=== PATIENT | male | born 1945 | race Caucasian/White ===

== ENCOUNTER 2016-12-29 19:16 | Emergency (ER) | payer MEDICARE, OTHER ==
--- NOTE | 2016-12-29 19:40 | EDM.PDOC ---
ED HPI GENERAL MEDICAL PROBLEM - General Chief Complaint: Back Pain or Injury Stated Complaint: [facility] Time Seen by Provider: 12/29/16 19:27 Source of Information: Reports: Patient, Family (), RN Notes Reviewed History Limitations: Reports: No Limitations - History of Present Illness INITIAL COMMENTS - FREE TEXT/NARRATIVE: The patient states that he and his are on a bus tour, visiting from [place]. They were at [place], and the patient went to sit on a picnic bench, but missed, falling onto the concrete floor, onto his back. He states that he did not strike his head, nor injure his extremities. He presents with right mid back pain. He describes it as dull, but that it is worse with movement. He denies prior back issues. Right mid-back Pain Score (Numeric/FACES): 7 - Related Data Allergies Allergy/AdvReac Type Severity Reaction Status Date / Time erythromycin base Allergy Hives Verified 12/29/16 19:26 Home Meds: Home Meds Albuterol Sulfate [Proair Hfa] 8.5 gm IH ASDIRECTED PRN 12/29/16 [History] Aspirin 162 mg PO DAILY 12/29/16 [History] Pantoprazole [ProTONIX] 40 mg PO ACBREAKFAST 12/29/16 [History] Propranolol [Inderal LA] 80 mg PO DAILY 12/29/16 [History] Simvastatin [Zocor] 40 mg PO DAILY 12/29/16 [History] Umeclidinium Brm/Vilanterol Tr [Anoro Ellipta 62.5-25 Mcg INH] 1 puff INH DAILY 12/29/16 [History] Past Medical History Cardiovascular History: Reports: Aneurysm (AAA), High Cholesterol, Hypertension Respiratory History: Reports: COPD, Sleep Apnea (CPAP 4.5) Gastrointestinal History: Reports: Colon Polyp, GERD (with Grigsby esophagus) Genitourinary History: Reports: BPH Musculoskeletal History: Reports: Gout (suspected) Endocrine/Metabolic History: Reports: Obesity/BMI 30+ - Past Surgical History HEENT Surgical History: Reports: Tonsillectomy Cardiovascular Surgical History: Reports: AAA repair GI Surgical History: Reports: Hernia, Inguinal (bilateral) Social & Family History - Tobacco Use Smoking Status *Q: Former Smoker Years of Tobacco use: 25 Packs/Tins Daily: 1.5 Month Tobacco Last Used: 1987 Second Hand Smoke Exposure: No - Alcohol Use Alcohol Use History: No - Recreational Drug Use Recreational Drug Use: No - Living Situation & Occupation Living situation: Reports: , with Spouse Occupation: Retired ED ROS GENERAL - Review of Systems Review Of Systems: See Below Constitutional: Reports: No Symptoms HEENT: Reports: No Symptoms Respiratory: Reports: No Symptoms Cardiovascular: Reports: No Symptoms Endocrine: Reports: No Symptoms GI/Abdominal: Reports: No Symptoms : Reports: No Symptoms Musculoskeletal: Reports: No Symptoms Skin: Reports: No Symptoms Neurological: Reports: No Symptoms Psychiatric: Reports: No Symptoms Hematologic/Lymphatic: Reports: No Symptoms Immunologic: Reports: No Symptoms ED EXAM, SKIN/RASH Exam: See Below Exam Limited By: No Limitations General Appearance: Alert, WD/WN, No Apparent Distress Eye Exam: Bilateral Eye: Normal Inspection Ears: Normal External Exam, Hearing Grossly Normal Nose: Normal Inspection, No Blood Throat/Mouth: Normal Inspection, Normal Lips, Normal Voice, No Airway Compromise Head: Atraumatic, Normocephalic Neck: Normal Inspection, Full Range of Motion Respiratory/Chest: No Respiratory Distress, Lungs Clear, Normal Breath Sounds, No Accessory Muscle Use Cardiovascular: Normal Peripheral Pulses, Regular Rate, Rhythm, No Gallop, No JVD, No Murmur, No Rub Peripheral Pulses: 4+: Radial (L), Radial (R) GI/Abdominal: Normal Bowel Sounds, Soft, Non-Tender, No Organomegaly, No Distention, No Abnormal Bruit, No Mass, Other (Obese) (Male) Exam: Deferred Rectal (Males) Exam: Deferred Back Exam: Normal Inspection, Other (No visible abnormality to the patient's back, such as swelling, erythema, ecchymosis, or abrasion, however, the patient has considerable tenderness to palpation over the right mid ribs. No tenderness over the thoracic spine.). No: Vertebral Tenderness Extremities: Normal Inspection, Normal Range of Motion, Normal Capillary Refill , Other (Hyperpigmentation of both legs, consistent with chronic venous stasis changes. Approximately 1+ pitting edema presently.) Neurological: Alert, Oriented, Normal Cognition, No Motor/Sensory Deficits Psychiatric: Normal Affect Skin: Warm, Dry, Intact, Normal Color, No Rash Lymphatic: No Adenopathy Course - Vital Signs Last Recorded V/S: Last Vital Signs Temp 36.7 C 12/29/16 19:21 Pulse 70 07/11/17 19:21 Resp 19 12/29/16 19:21 BP 161/63 H 12/29/16 19:21 Pulse Ox 91 L 12/29/16 19:21 - Orders/Labs/Meds Orders: Active Orders 24 hr Category Date Time Status Chest 2V [CR] Stat Exams 12/29/16 20:12 Taken Meds: Medications Discontinued Medications Generic Name Dose Route Start Last Admin Trade Name Silvio PRN Reason Stop Dose Admin Hydrocodone Bitart/Acetaminophen 2 tab 12/29/16 20:13 12/29/16 20:20 [place] 325-5 Mg PO 12/29/16 20:14 2 tab ONETIME ONE Administration - Re-Assessments/Exams Free Text/Narrative Re-Assessment/Exam: 12/29/16 21:15 Two-view chest radiograph reviewed. Views are limited due to body habitus. Cardiac silhouette is likely at the upper limits of normal. No pulmonary vascular congestion. No pleural effusions. No focal infiltrate. No pneumothorax. Posterior fractures of ribs 5, 6, and 7 noted. Formal read per the Radiologist pending. 12/29/16 21:22 As the patient and his are on a bus tour, visiting from [place], he will not have access to a pharmacy tomorrow. The patient will be discharged with an [facility] prescription for [place]. While I see no pneumothorax at this time, I instructed the patient that if he develops any dyspnea, that he should go to the nearest ER for reevaluation. Departure - Departure Time of Disposition: 21:23 Disposition: Home, Self-Care 01 Condition: Fair Clinical Impression: Multiple fractures of ribs, right side, initial encounter for closed fracture - Discharge Information Instructions: Rib Fracture, [id number] Referrals: PCP,Not In Area [Primary Care Provider] - Forms: ED Department Discharge Additional Instructions: You were seen in the emergency room after falling off a picnic bench onto your back. Workup in the ER included a chest x-ray. The x-ray shows fractures of your right 5th, 6th, and 7th ribs. Take [id number] ibuprofen 2-3 tablets (400-600 mg) every 8 hours, with food, as needed for pain. You have been started on the narcotic pain reliever [place]. Take 1-2 tablets up to every 6 hours, as needed for pain not relieved by ibuprofen. If you take [place], do not drive or operate heavy machinery for 12 hours afterwards. [place] will likely cause constipation, so consider taking a stool softener. Despite your pain, it is important that you stay active. While we do not see a pneumothorax (popped lung), such a complication is possible with broken ribs. If you develop shortness of breath or chest pain, go to the nearest ER for reevaluation. - My Orders Last 24 Hours: My Active Orders 12/29/16 20:12 Chest 2V [CR] Stat - Assessment/Plan Last 24 Hours: My Active Orders 12/29/16 20:12 Chest 2V [CR] Stat
[2016-12-29] MEDS ORDERED: Acetaminophen/HYDROcodone 325-5 MG Tab PO ONE (20:13)
[2016-12-29 22:07] VITALS: BP 151/79
--- NOTE | 2016-12-30 07:57 | CR ---
Chest: Two views of the chest were obtained. Comparison: No previous chest x-ray. Heart size and mediastinum are within normal limits. Slightly prominent density within the right infrahilar region is seen which is felt to be due to vascular confluence. No acute infiltrates are seen. Several right-sided rib fractures are seen most likely old. Mild degenerative change is scattered within the spine with disc space narrowing and endplate spurring. Mild areas of atelectasis or scarring are seen within both lung bases. Impression: 1. Several right-sided rib fractures most likely old but please correlate with the patient's symptoms. 2. Mild bibasilar atelectasis or scarring is seen. 3. Other incidental findings. Diagnostic code #3
== END 2016-12-29 21:40 | disposition home or self-care (01) ==
LOC: JD.ED 19:16
DX: S22.41XA Multiple fractures of ribs, right side, initial encounter for closed fracture (principal); E78.00 Pure hypercholesterolemia, unspecified; I10 Essential (primary) hypertension; J44.9 Chronic obstructive pulmonary disease, unspecified; K21.9 Gastro-esophageal reflux disease without esophagitis; E66.9 Obesity, unspecified; Z98.890 Other specified postprocedural states; Z87.891 Personal history of nicotine dependence; Z68.43 Body mass index [BMI] 50.0-59.9, adult; Z88.1 Allergy status to other antibiotic agents; Z79.82 Long term (current) use of aspirin; Z79.899 Other long term (current) drug therapy; W19.XXXA Unspecified fall, initial encounter
CPT/HCPCS: 71020; 99284; A9270; 99283